=== PATIENT | female | born 1940 | race Caucasian/White ===

== ENCOUNTER → 2017-09-08 | Outpatient (CLI) | payer OTHER ==
[~2017-09-08] VITALS: Ht 154.9 cm; Wt 80.7 kg
[~2017-09-08] MED LIST: ACETAMINOPHEN325 M1 PO; ALLOPURINOL 30300 M1 PO; AMITRIPTYLINE H25 M4 PO; ASPIRIN81 M2 PO; CALCIUM 600 +1 EA15 PO; CALCIUM 600 +1 EAC5 PO; CARDIZEM CD 18180 M3 PO; CLARITIN10 MG PO; DISALCID750 MG PO; FENOFIBRATE145 M1 PO; FIBER CHOICE C1.5 GM PO; FISH OIL 1,2001 EAC4 PO; FLONASE 0.05%50 MCG NASAL; FOLIC ACID 1 MG1 MG PO; GLUCOPHAGE500 MG PO; HYDROCODON-ACE1 EAC5 PO; HYDROXYZINE HCL25 M1 PO; METHOTREXA1 GM/40 M1 PO; MICARDIS40 MG PO; MYRBETRIQ25 MG PO; NEXIUM40 MG PO; NORCO 10-325 T1 EACH PO; NYSTATIN 1100000 U/M PO; PREMARIN VAGI42.5 G1 TOP; PRESERVISION T1 EACH PO; PROLIA60 MG/1 ML SQ; REMICADE 1100 MG/VIA IV; RESTASIS1 EACH OPHTHALMIC; ROBAXIN 750 MG750 M1 PO; ROPINIROLE HCL0.5 MG PO; SALSALATE 750750 MG PO; SYNTHROID75 MCG PO; VITAMIN D-32000 UNIT PO; VOLTAREN GEL 1100 G1 TOP; ZOCOR40 MG PO
--- NOTE | ~2017-09-08 | HPC ---
[facility] [address] [place] [address] PAIN MANAGEMENT CONSULTATION Name: LAURA JOLLY Room #: REG [facility] Matias.#: [id number] Admission: 09/08/17 Attend Phys: Honorio Davis, DO Discharge: Date of : 42 Report #: [id number] THIS REPORT FOR: //name// CC: Sherita Davis The patient is a delightful 76-year-old female, seen now a little greater than 2 years ago for symptomatic lumbar radiculopathy status post decompressive laminectomy, component of SI mediated pain and neuropathic pain. The patient was given a caudal epidural injection with overall improvement of lumbar radicular symptoms, and lost to follow up. She returns to the pain clinic today noting that pain has begun to recur past year or more. Pain is in the hips and anterior thighs. She has developed pain to the point she is using a cane in her right hand for the past several months. She has also noted some episodic saddle anesthesia and episodic bowel and bladder incontinence. 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 for pain from Dr. Sherita Mckeon. She notes pain has become problematic to the point that she sought further care. She was convinced pain was coming from the hips, x-rays apparently showed rather unremarkable pathology here, she did get a new series of x-rays and MRI of the lumbar spine. It does show progressive spinal stenosis with specifically L2-L3 noting canal narrowed to 0.6 cm AP with grade 1 anterolisthesis of L2 on 3. She has fusion L4-L5 through S1 with posterior decompression and pedicle screws L4, L5, and S1. REVIEW OF SYSTEMS: A complete review of systems was gone over with the patient, again in the intervening 2 years, no significant medical changes have occurred, ongoing rheumatoid arthritis. History of gout for which she takes allopurinol, Requip for restless legs syndrome. Dyslipidemia for which she takes simvastatin. Does have some ongoing bladder spasms, she continues to take mirabegron. Osteopenia for which she takes Prolia. Does take nystatin for her dyslipidemia as well. Salsalate p.o. along with Voltaren gel topically. Remicade infusions for her rheumatoid arthritis, Micardis, allopurinol, and levothyroxine. PHYSICAL EXAMINATION: Reveals a 155 cm, 80 kg female with a BMI of 33.7 kg/m2. Blood pressure is 134/76, pulse 67, and respirations are 18. Alert and oriented to person, place and time, judged to be a reasonable historian. Pupils are reactive to light and accommodation. Extraocular muscles are intact. Thyroid is modestly enlarged. Upper extremity strength is preserved. Rises from chair using armrest. She is using a cane in her right hand. She has a modestly antalgic gait. Lumbar flexion is limited to about 50 degrees. Lower extremity strength shows diminished hip flexion strength bilaterally about 3/5, lower extremity extension is better to about 4/5, plantarflexion and dorsiflexion is symmetric. Straight leg raise is negative. Patellar reflexes are diminished bilaterally. Achilles reflexes are preserved. Passive rotation of the hips is completely unremarkable. Josue's test is nominal. [address] [address] PAIN MANAGEMENT CONSULTATION Name: LAURA JOLLY Room #: REG LELO Azevedo#: [id number] Admission: 09/08/17 Attend Phys: Honorio Davis DO Discharge: Date of : 42 Report #: [id number] DIAGNOSTIC STUDIES: As alluded to above, does show significant stenosis at L2-L3. ASSESSMENT: Symptomatic lumbar radiculopathy status post decompressive laminectomy, axial back pain, neuropathic pain requiring high risk complex medication management, and sacroiliac joint dysfunction by history. RECOMMENDATION: 1. 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 Mckeon, these are appropriate. 2. Epidural injection under fluoroscopy today, midline L3-L4. She has very tight stenosis at L2-L3. If this does not afford adequate relief, we can proceed with bilateral transforaminal epidural injections at L2-L3. 3. If bowel and/or bladder incontinence issues continue, f/u with GP for further evaluation. It is not characterisitic for B/B incontinence changes secondary to severe spinal stenosis to be intermitent with completely normal function between bouts. Thank you for allowing me to participate in the patient's care. I will keep you abreast of her progress. PROCEDURE: Lumbar epidural injection under fluoroscopy. PROCEDURE NOTE: After both written and informed consent to include risk of spinal cord damage, increased pain, weakness and dural puncture, the patient was taken to the fluoroscopy suite, placed in the prone position. After sterile prep and drape, a skin wheal with lidocaine was raised. A 22-gauge epidural Tuohy needle was inserted in the midline at L3-L4 with good loss to resistance. Negative aspiration for cerebrospinal fluid or blood was noted. Then 1 mL of Omnipaque under biplanar fluoroscopy showed good spread within the epidural space. This was followed with 80 mg of triamcinolone plus 1 mL of 1.5% preservative-free Xylocaine, 0.5 mL Xylocaine was then injected to flush the needle; it was removed. The patient was monitored for an appropriate period of time and discharged in good and stable condition. <ELECTRONICALLY SIGNED> By: Honorio Davis DO 09/11/17 [id number] [id number] Honorio Davis DO /nt
[2017-09-08 11:28] VITALS: BP 134/76
== END ==
LOC: PAIN 07:05
DX: M54.16 Radiculopathy, lumbar region (principal); M53.3 Sacrococcygeal disorders, not elsewhere classified; Z88.8 Allergy status to other drugs, medicaments and biological substances; Z91.09 Other allergy status, other than to drugs and biological substances; Z79.891 Long term (current) use of opiate analgesic

== ENCOUNTER → 2018-04-12 | Outpatient (CLI) | payer OTHER ==
[~2018-04-12] VITALS: Ht 154.9 cm; Wt 82.9 kg
--- NOTE | ~2018-04-12 | HPC ---
[facility] [place] [address] [place] [address] PAIN MANAGEMENT CONSULTATION Name: LAURA JOLLY Room #: REG [facility].#: [id number] Admission: 04/12/18 Attend Phys: Honorio Davis DO Discharge: Date of : 42 Report #: [id number] THIS REPORT FOR: //name// CC: Sherita Davis The patient is a 77-year-old female who has been treated for symptomatic lumbar radiculopathy status post decompressive laminectomy and fusion L4 through S1. She has done well with occasional epidural injections, last injection was back in August. She prior had an injection about 5 months prior. She initially had a caudal injection with some efficacy. Last injection at L3-L4 on 09/08/2017 afforded greater than 60% relief for many months. Pain has only begun to recur in the low back, anterior thighs, exacerbated with standing, walking and bending. PHYSICAL EXAMINATION: Shows pleasant 77-year-old female. Vital signs as noted in the EMR. Rises from chair using armrest, does have an antalgic gait. Little ataxia. We talked about using a cane for balance. Lower extremity strength is symmetric, modestly diminished. Hip flexion exacerbates pain. ASSESSMENT: Symptomatic lumbar radiculopathy, status post decompressive laminectomy with fusion L4 through S1 with a classic L3 radicular symptoms. RECOMMENDATION: Epidural injection under fluoroscopy today. Follow up simply as needed. PROCEDURE: Lumbar epidural injection with fluoroscopy. PROCEDURE NOTE: After both written and informed consent to include risk of spinal cord damage, increased pain, weakness and dural puncture, the patient was taken to the fluoroscopy suite, placed in the prone position. After sterile prep and drape, a skin wheal with lidocaine was raised. A 22-gauge epidural Tuohy needle was inserted in the midline at L3-4 with good loss to resistance. Negative aspiration for cerebrospinal fluid or blood was noted. Then 1 mL of Omnipaque under biplanar fluoroscopy showed good spread within the epidural space. This was followed with 80 mg of triamcinolone plus 1 mL of 1.5% preservative-free Xylocaine, 0.5 mL Xylocaine was then injected to flush the needle; it was removed. The patient was monitored for an appropriate period of time and discharged in good and stable condition. <ELECTRONICALLY SIGNED> By: Honorio Davis DO 04/13/18 [id number] Honorio Davis DO /nt
[2018-04-12 09:10] VITALS: BP 137/65
== END | disposition home or self-care (01) ==
LOC: PAIN 09-21 07:52
DX: M54.16 Radiculopathy, lumbar region (principal); G89.29 Other chronic pain; Z98.890 Other specified postprocedural states; Z79.899 Other long term (current) drug therapy; Z88.8 Allergy status to other drugs, medicaments and biological substances; Z79.891 Long term (current) use of opiate analgesic

== ENCOUNTER → 2019-03-27 | Outpatient (CLI) | payer OTHER ==
[~2019-03-27] VITALS: Ht 154.9 cm; Wt 81.1 kg
[~2019-03-27] MED LIST changes: +CIMZIA400 MG SUBQ; +MAGNESIUM OXID250 MG PO; +METAMUCIL660 GM PO; +OCUVITE TABLET1 EAC1 PO; +OMEGA-31000 M1 PO; +PRENATAL FORMU1 EAC4 PO
--- NOTE | ~2019-03-27 | P ---
[facility] [place] [address] PROCEDURE REPORT Name: LAURA JOLLY Room #: REG [facility].#: [id number] Admission: 03/27/19 ������������������ Attend Phys: Carlos Davis DO Discharge: ������������������ Date of : 42 Report #: [id number] THIS REPORT FOR: //name// CC: Carlos Mckeon MD DATE OF SERVICE: 03/27/2019 DESCRIPTION OF PROCEDURE: L3-L4 interlaminar epidural steroid injection under fluoroscopic guidance. After obtaining written consent, the patient was taken back to fluoroscopy suite, placed in prone position with pillow under abdomen to decrease lumbar lordosis. Skin overlying lumbosacral area then prepped and draped in aseptic fashion. The lumbar intervertebral spaces identified by AP fluoroscopy. Skin and subcutaneous tissue overlying target site of injection anesthetized with 3 mL of 1% lidocaine. A 20-gauge 3-1/2-inch Tuohy needle advanced under fluoroscopic guidance towards the epidural space using a parasagittal approach. Epidural space identified using loss of resistance to air technique. After negative aspiration for heme or cerebrospinal fluid, 1 mL of Omnipaque injected. Lumbar epidurogram confirmed using both AP and lateral fluoroscopy. After negative aspiration for heme or cerebrospinal fluid, 5 mL of a solution containing 2 mL 40 mg per mL, 80 mg total triamcinolone and 3 mL of lidocaine 1% injected slowly. Needle then retracted approximately half way, flushed with 1 mL of 1% lidocaine and then removed. Sterile bandage placed over injection site. No new motor deficits present in the lower extremities following procedure. The patient tolerated procedure well, carefully escorted to recovery room in stable condition. No apparent complication. After meeting discharge criteria, the patient discharged home. ��������������������������������������������� ���������������������������������������� By: ��������������������������������������������� 0835 [id number] Carlos Davis DO /nt
--- NOTE | ~2019-03-27 | HPC ---
[facility] [place] [address] PAIN MANAGEMENT CONSULTATION Name: LAURA JOLLY Room #: REG [facility].#: [id number] Admission: 03/27/19 ������������������ Attend Phys: Carlos Davis DO Discharge: ������������������ Date of : 42 Report #: [id number] THIS REPORT FOR: //name// CC: Carlos Mckeon MD DATE OF SERVICE: 03/27/2019 CHIEF COMPLAINT: Back pain. HISTORY OF PRESENT ILLNESS: As you know, the patient is a 78-year-old female who has undergone extensive lumbar spine surgery with fusion from L4 through S1 with instrumentation. She sought evaluation with my partner, Dr. Honorio Davis nearly 2 years ago where she underwent an epidural injection with some improvement in symptoms. She returns today in followup visit per the request of Dr. Mckeon to undergo next in the series of lumbar epidural injections in hopes of improving pain. The patient is placing her pain today at around 5/10. She denies any specific injury or trauma since our surgeries that may have led to symptom recurrence. She returns to undergo a lumbar epidural injection today. ALLERGIES: ADHESIVE TAPES, PLAQUENIL, REMICADE. CURRENT MEDICATIONS: Allopurinol, Synthroid, fenofibrate, simvastatin, Micardis, fluticasone spray, cyclosporine, multivitamin, cholecalciferol, calcium carbonate, hydroxyzine, ropinirole, diclofenac, hydrocodone, estrogen conjugates, nystatin, Myrbetriq, Prolia, loratadine, Cimzia, magnesium oxide, omega-3 fish oil, vitamin, psyllium husks. SOCIAL HISTORY: The patient denies tobacco, alcohol, IV or illicit drug use. She is retired. She is unaccompanied today. IMAGING: No new imaging available. PQRS: The patient has known arthritic changes of the lumbar spine, status post fusion, bilateral hip osteoarthritis and bilateral knees. She does have a history of rheumatoid arthritis and being treated for such. She is placing pain intensity of 5/10. She is a fall risk, but has not had a fall in the last three months. She is utilizing ambulatory devices. She is not on blood thinners, but is treated for hypertension. She has been on long-term opioid medication. She is a low risk for opioid addiction. She is placing pain impact score at 35/70, moderate interference of daily activities secondary to pain. PHYSICAL EXAMINATION: VITAL SIGNS: Blood pressure 170/70, pulse 65, respiratory rate 18 and unlabored. The patient is 99% on room air. Height 5 feet 1 inch tall, weight [address] [address] PAIN MANAGEMENT CONSULTATION Name: LAURA JOLLY Room #: REG [facility].#: [id number] Admission: 03/27/19 ������������������ Attend Phys: Carlos Davis DO Discharge: ������������������ Date of : 42 Report #: [id number] 178.8 pounds, BMI calculated 33.8. GENERAL: Well-developed, well-nourished, well-hydrated 78-year-old female. She appears stated age, pain is rated around 5/10. HEENT: Normocephalic, atraumatic. Pupils equal, round, reactive to light. EXTREMITIES: Show no clubbing, no cyanosis, and no edema. MUSCULOSKELETAL: Lower extremity strength is equal and symmetrical, but diminished with hip flexion, knee extension bilaterally. Muscle bulk and tone appears symmetrical in comparing left lower extremity over right. Gait is antalgic. There are well-healed surgical scars from lumbar surgery. Straight leg raising is negative in the supine position and an equivocal in the supine position. ASSESSMENT: 1. Symptomatic lumbar radiculopathy. 2. Lumbosacral spondylosis with radiculopathy. 3. Failed lumbar spine surgery. 4. Chronic intractable pain. PLAN: 1. The patient returns today in followup visit per the request of her primary care physician to undergo next in the series of lumbar epidural injections. The patient apparently did very well with previous epidural injection, this was performed 09/08/2017. She returns today to undergo next in the series in hopes of improving residual pain. She has been advised risks and benefits of this procedure. These risks include but are not necessarily limited to bleeding, bruising, infection, worsening of pain, no relief of pain, also risk of temporary or permanent muscle weakness, temporary or permanent nerve damage, possible paralysis, post-dural puncture headache and . The patient states she understood and wished to proceed. 2. No medication changes made at today's visit. The patient will continue current medical therapy as previously prescribed. 3. We will see the patient back in followup visit on an as needed basis for possible next in the series of lumbar epidural injections. ��������������������������������������������� ���������������������������������������� By: ��������������������������������������������� 0835 [id number] Carlos Davis DO /nt
[2019-03-27 09:44] VITALS: BP 170/70
--- NOTE | 2019-03-27 10:10 | NUR ---
Pain Clinic Assessment: 1. History of Osteoarthritis: Not Applicable History of Rheumatoid Arthritis: YES 2. Height: 5 ft. 1 in. 154.9 cm. Weight: 178.8 lb. oz. 81.103 kg. Patient's BMI: 33.8 3. Vital Signs: BP: 170/70 Pulse: 65 Resp: 18 Temp: 02 Sat: 99 ECG Mon: 4. Pain Intensity: 5 THIS AM 5. Fall Risk: Dizziness: Y Needs help standing or walking: Y Fallen in the last 3 months: N Fall risk comments: 6. Patient on Blood Thinner: None 7. History of Hypertension: Y 8. Opioid Therapy greater than 6 weeks: Y Opiate Contract Signed: 9. Risk Assessment Tool Provided: 0 LOW 10. Functional Assessment Tool: 11. Recreational Drug Use: Never Drug Type: Tobacco Use: Never Smoker Tobacco Type: Amount or Packs/day: How Many Years: Alcohol Use: Past use Frequency: Quant:
== END | disposition home or self-care (01) ==
LOC: PAIN 08:36
DX: M47.27 Other spondylosis with radiculopathy, lumbosacral region (principal); M96.1 Postlaminectomy syndrome, not elsewhere classified; G89.29 Other chronic pain; I10 Essential (primary) hypertension; M06.9 Rheumatoid arthritis, unspecified; Z79.891 Long term (current) use of opiate analgesic; M19.90 Unspecified osteoarthritis, unspecified site; Z88.8 Allergy status to other drugs, medicaments and biological substances; Z79.899 Other long term (current) drug therapy; Z98.890 Other specified postprocedural states

== ENCOUNTER → 2019-07-16 | Outpatient (CLI) | payer OTHER ==
[~2019-07-16] VITALS: Ht 154.9 cm; Wt 79.4 kg
[~2019-07-16] MED LIST changes: +CEVIMELINE HCL30 MG PO
[2019-07-16 09:26] VITALS: BP 158/66
--- NOTE | 2019-07-16 09:30 | NUR ---
Pain Clinic Assessment: 1. History of Osteoarthritis: Not Applicable History of Rheumatoid Arthritis: YES 2. Height: 5 ft. 1 in. 154.9 cm. Weight: 175.0 lb. oz. 79.380 kg. Patient's BMI: 33.1 3. Vital Signs: BP: 158/66 Pulse: 64 Resp: 14 Temp: 02 Sat: 98 ECG Mon: 4. Pain Intensity: 4-NOW, 6-AM AND EVENING 5. Fall Risk: Dizziness: N Needs help standing or walking: N Fallen in the last 3 months: N Fall risk comments: 6. Patient on Blood Thinner: None 7. History of Hypertension: Y 8. Opioid Therapy greater than 6 weeks: Y Opiate Contract Signed: 9. Risk Assessment Tool Provided: 0 LOW 10. Functional Assessment Tool: 35/70 11. Recreational Drug Use: Never Drug Type: Tobacco Use: Never Smoker Tobacco Type: Amount or Packs/day: How Many Years: Alcohol Use: Past use Frequency: Quant:
--- NOTE | 2019-07-17 07:46 | HPC ---
[facility] [place] [address] PAIN MANAGEMENT CONSULTATION Name: LAURA JOLLY Room #: REG [facility].#: [id number] Admission: 07/16/19 Attend Phys: Carlos Davis DO Discharge: Date of : 42 Report #: [id number] THIS REPORT FOR: //name// CC: NICKI Mckeon DATE OF SERVICE: 07/16/2019 REFERRING PHYSICIAN: Nicki Mckeon MD CHIEF COMPLAINT: Back pain. HISTORY OF PRESENT ILLNESS: As you know, the patient is a 78-year-old female who has had extensive lumbar spine surgery with fusion from L4 through S1 with instrumentation. She was initially seen by my partner, Dr. Honorio Davis in consultation 07/03/2015, diagnosed with symptomatic lumbar radiculopathy status post decompressive laminectomy. Since that time, the patient has had fusion from L4 through S1, but unfortunately is now experiencing symptoms from the L2-L3 level. She has noted progressively worsening spinal stenosis at the L2-L3 level, now classified as marked disk space narrowing with large broad central disk protrusion along with a grade 1 retrolisthesis leading to severe thecal sac compression with measurement no greater than 6 mm. She underwent a lumbar epidural injection under fluoroscopic guidance to address the symptoms at our last visit reporting improvement in symptoms of 90%, lasting for almost a month. She returns today in followup visit to undergo next in the series of epidural injections. The patient does have plans to see Dr. Jones in the very near future in regards to surgical decompression of the L2-L3 level, the level just above most recent fusion. She returns today requesting next in the series of injections and to discuss options for treatment. ALLERGIES: ADHESIVE TAPE, PLAQUENIL, REMICADE. CURRENT MEDICATIONS: See extensive list in chart. SOCIAL HISTORY: The patient denies tobacco, alcohol, IV or illicit drug use. She is accompanied by her present in room today. IMAGING: No new imaging available. PQRS: The patient has known arthritic changes of the lumbar spine, bilateral hip osteoarthritis and bilateral knee osteoarthritis. She does have a history of rheumatoid arthritis, being treated medically. She is placing pain today at around 4/10 up to 6/10 in the evening hours. She is not a fall risk, has not had a fall in last 3 months. She is not on blood thinners, but is treated for hypertension. She is on chronic opioids, has a low opioid addiction potential. [address] [address] PAIN MANAGEMENT CONSULTATION Name: LAURA JOLLY Room #: REG CLI [facility].#: [id number] Admission: 07/16/19 Attend Phys: Carlos Davis DO Discharge: Date of : 42 Report #: [id number] pain impact score 35/70, indicating moderate interference of daily activities secondary to pain. PHYSICAL EXAMINATION: VITAL SIGNS: Blood pressure 158/66, pulse 64, respiratory rate 14 and unlabored. The patient is 98% on room air. Height 5 feet 1 inch tall, weight 175 pounds, BMI calculated 33.1. GENERAL: Well-developed, well-nourished, well-hydrated, exogenously obese 78-year-old female, appearing stated age, pain is rated anywhere from 4-6/10. HEENT: Normocephalic, atraumatic. Pupils equal, round, reactive to light. EXTREMITIES: Show no clubbing, no cyanosis, and no edema. MUSCULOSKELETAL: Lower extremity strength is symmetrical, but diminished with hip flexion, knee extension bilaterally due to pain generation. Muscle bulk and tone appears symmetrical in comparing left lower extremity to right. Gait is antalgic. Well-healed surgical scars of the lumbar spine bilaterally. Straight leg raising negative. Supine straight leg raising equivocal. Ankle clonus negative. Babinski is negative. ASSESSMENT: 1. Symptomatic lumbar radiculopathy. 2. Lumbosacral spondylosis with radiculopathy. 3. Central canal stenosis of lumbar spine. 4. Failed lumbar spine surgery. 5. Chronic intractable pain. PLAN: 1. The patient returns today in followup visit having noted 90% improvement lasting for nearly 1 month with previous epidural injection. Unfortunately, the patient's symptoms have begun to return without inciting injury or trauma. She is requesting we will perform next in a series of lumbar epidural injections to hopefully improve overall pain. She also wishes to discuss other treatment options today. 2. The patient was advised risks and benefits of a lumbar epidural injection. These risks include but are not necessarily limited to bleeding, bruising, infection, worsening pain, no relief of pain, also risk of temporary or permanent muscle weakness, temporary or permanent nerve damage, possible paralysis, post-dural puncture headache and . The patient states understood and wished to proceed. 3. The patient and I did discuss other treatment options available for her ongoing pain. These would include physical therapy, stretching exercise, core strengthening to help alleviate some of the symptoms the patient is experiencing and provide better baseline core strength in the lumbar region. We discussed medication management, understanding that all medications eventually failed to control symptoms. This would be only a temporizing treatment option and given the current political condition in regards to opioid medications, may not be available for any length of time. We discussed spinal cord stimulator as an [facility] [address] [place] [address] PAIN MANAGEMENT CONSULTATION Name: LAURA JOLLY Room #: REG [facility]#: [id number] Admission: 07/16/19 Attend Phys: Carlos Davis DO Discharge: Date of : 42 Report #: [id number] option, which could provide improvement for a period of time, but the stenosis at the L2-L3 level will continue to progress and ultimately the spinal cord stimulator will be ineffective at treating symptoms. Finally, we discussed the surgical option extending the fusion from the L4 level to the L2 level, decompressing the new stenotic findings on MRI. The patient will consider options. She is going to discuss this with Dr. Jones at their followup visit. 4. No medication changes made at today's visit. The patient will continue current medical therapy as previously prescribed. 5. I have provided the prescription for the patient for a roller walker. This is due to the severe ambulatory issue secondary to the progressively worsening spinal stenosis and weakness. A roller walker was provided to the patient in prescription form to fill at her earliest convenience. 6. We will see the patient back in followup visit on an as needed basis for possible third in the series of epidural injections. PROCEDURE NOTE DESCRIPTION OF PROCEDURE: L3-L4 interlaminar epidural steroid injection under fluoroscopic guidance. After obtaining written consent, the patient was taken back to fluoroscopy suite, placed in prone position with pillow under abdomen to decrease the lumbar lordosis. Skin overlying lumbosacral area then prepped and draped in aseptic fashion. The L3-L4 level was identified by AP fluoroscopy. Skin and subcutaneous tissue overlying target site of injection anesthetized with 3 mL of 1% lidocaine. A 20-gauge 3-1/2 inch Tuohy needle advanced under fluoroscopic guidance towards the epidural space using a parasagittal approach. Epidural space identified using loss of resistance to air technique. After negative aspiration for heme or cerebrospinal fluid, 1 mL of Omnipaque injected. A lumbar epidurogram was confirmed using both AP and lateral fluoroscopy. After negative aspiration for heme or cerebrospinal fluid, 5 mL of a solution containing 2 mL 40 mg per mL, 80 mg total triamcinolone and 3 mL of lidocaine 1% injected slowly. Needle then retracted [place], flushed with 1 mL of 1% lidocaine and then removed. Sterile bandage placed over injection site. No new motor deficits present in lower extremity following procedure. The patient tolerated the procedure well, carefully escorted to recovery room in stable condition. No apparent complications. After meeting discharge criteria, the patient discharged home. <ELECTRONICALLY SIGNED> By: Carlso Davis DO 07/17/19 0746 [id number] Carlos Davis DO /nt
== END | disposition home or self-care (01) ==
LOC: PAIN 06:47
DX: M47.27 Other spondylosis with radiculopathy, lumbosacral region (principal); M48.061 Spinal stenosis, lumbar region without neurogenic claudication; M96.1 Postlaminectomy syndrome, not elsewhere classified; G89.29 Other chronic pain; I10 Essential (primary) hypertension; M19.90 Unspecified osteoarthritis, unspecified site; M06.9 Rheumatoid arthritis, unspecified; Z79.891 Long term (current) use of opiate analgesic; Z88.8 Allergy status to other drugs, medicaments and biological substances; Z98.890 Other specified postprocedural states; Z79.899 Other long term (current) drug therapy

== ENCOUNTER → 2019-11-13 | Outpatient (CLI) | payer OTHER ==
[~2019-11-13] VITALS: Ht 154.9 cm; Wt 79.7 kg
--- NOTE | ~2019-11-13 | HPC ---
[facility] [place] [address] PAIN MANAGEMENT CONSULTATION Name: LAURA JOLLY Room #: REG [facility].#: [id number] Admission: 11/13/19 Attend Phys: Carlos Davis DO Discharge: Date of : 42 Report #: [id number] THIS REPORT FOR: //name// CC: Carlos Mckeon DATE OF SERVICE: 11/13/2019 CHIEF COMPLAINT: Low back pain, bilateral lower extremity pain, left greater than right. HISTORY OF PRESENT ILLNESS: As you know, the patient is a 79-year-old female who has undergone extensive surgical procedures of the lumbar spine with fusion of 3 levels of the lumbar area. Unfortunately, her symptoms continued to recur as a radiculopathy. She was referred to our clinic to trial injections before looking toward surgical options. She has returned today stating that the previous lumbar epidural injection gave at our visit of 07/16/2019 provided improvement in symptoms of nearly 100%, lasting for 3 months. She returns today in follow up visit to undergo next in the series of lumbar epidural injections in hopes of building on that success. Unfortunately, her symptoms have begun to return. She is now placing pain score at 7/10 in the a.m., reducing to about 4/10 with ambulation. The patient denies new injury or trauma that may have led to symptom reoccurrence. ALLERGIES: ADHESIVE TAPE, PLAQUENIL, REMICADE. CURRENT MEDICATIONS: See chart. SOCIAL HISTORY: The patient denies tobacco, alcohol, IV or illicit drug use. She is accompanied by her , again present in room for this evaluation. IMAGING: No new imaging available. PQRS: The patient has arthritic changes noted of the lumbar spine, bilateral shoulders, bilateral elbows, bilateral hips and knees. She does have a diagnosis of rheumatoid arthritis. She is not a fall risk, has not had a fall in last 3 months. She is not on blood thinners, but is treated for hypertension. She is on chronic opioids and has a low opiate addiction potential. Pain impact score 35/70, moderate interference of daily activities secondary to pain. PHYSICAL EXAMINATION: VITAL SIGNS: Blood pressure 154/76, pulse 74, respiratory rate 18 and unlabored. The patient is 97% on room air. Height 5 feet 1 inch tall, weight 175.6 pounds and BMI calculated 33.2[place] [address] PAIN MANAGEMENT CONSULTATION Name: LAURA JOLLY [id number] Admission: 11/13/19 Attend Phys: Carlos Davis DO Discharge: Date of : 42 Report #: [id number] GENERAL: Well-developed, well-nourished, well-hydrated exogenously obese 79-year-old female appearing stated age, pain is rated today at around 7/10 in the morning, 4/10 at present. HEENT: Normocephalic, atraumatic. Pupils equal, round, reactive to light. Speech remains fluent. EXTREMITIES: Show no clubbing, no cyanosis, and no edema. MUSCULOSKELETAL: Lower extremity muscle bulk and tone is symmetrical again today when comparing lower extremities. Gait is antalgic favoring what appears to be the left lower extremity. Well-healed surgical scars of the lumbar spine. Lumbar provocation testing is met with reduction in mobility as well as pain with all maneuvers. Seated straight leg raising negative. Supine straight leg raising equivocal. ASSESSMENT: 1. Symptomatic lumbar radiculopathy. 2. Lumbosacral spondylosis with radiculopathy. 3. Progressively worsening central canal stenosis of lumbar spine. 4. Failed lumbar spine surgery. 5. Chronic intractable pain. PLAN: 1. The patient returns today in followup visit having noted good benefit with the previous epidural injection provided on 07/16/2019. Unfortunately, her symptoms have begun to return. She returns today to undergo the next in the series of epidural injections in hopes of building on success of previous intervention. The patient denies new injury, new trauma or any changes in medical history since our visit of June. She has been advised the risks and benefits of the procedure, states understood and wished to proceed. 2. No medication changes made at today's visit. The patient will continue current medical therapy as prior prescribed. 3. We will see the patient back in followup visit on an as needed basis for possible next in the series of epidural injections. PROCEDURE NOTE DESCRIPTION OF PROCEDURE: L3-L4 interlaminar epidural steroid injection under fluoroscopic guidance. After obtaining written consent, the patient was taken back to fluoroscopy suite, placed in prone position with pillow under abdomen to decrease lumbar lordosis. Skin overlying lumbosacral area prepped and draped in aseptic fashion. The L3-L4 interspace was identified by AP fluoroscopy. Skin and subcutaneous tissue overlying target site of injection anesthetized with 3 mL of 1% lidocaine. A 20-gauge 3-1/2 inch Tuohy needle advanced under fluoroscopic guidance towards [address] [address] PAIN MANAGEMENT CONSULTATION Name: LAURA JOLLY [id number] Admission: 11/13/19 Attend Phys: Carlos Davis DO Discharge: Date of : 42 Report #: [id number] the epidural space using a paramedian approach. Epidural space identified using loss of resistance to air technique. After negative aspiration for heme or cerebrospinal fluid, 1 mL of Omnipaque injected. A lumbar epidurogram was confirmed using both AP and lateral fluoroscopy. After negative aspiration for heme or cerebrospinal fluid, 5 mL of a solution containing 2 mL 40 mg per mL, 80 mg total triamcinolone along with 3 mL lidocaine 1% injected slowly. Needle retracted alf, flushed with 1 mL of 1% lidocaine and then removed. Sterile bandage placed over injection site. No new motor deficits present in the lower extremities following procedure. The patient tolerated procedure well, carefully escorted to recovery room in stable condition. No apparent complications. After meeting discharge criteria, the patient discharged home. By: [id number] Carlos Davis DO /nt
[2019-11-13 13:53] VITALS: BP 154/76
--- NOTE | 2019-11-13 14:26 | NUR ---
Pain Clinic Assessment: 1. History of Osteoarthritis: BACK Left Upper Extremity Right Upper Extremity Right Lower Extremity Left Lower Extremity History of Rheumatoid Arthritis: YES 2. Height: 5 ft. 1 in. 154.9 cm. Weight: 175.6 lb. oz. 79.652 kg. Patient's BMI: 33.2 3. Vital Signs: BP: 154/76 Pulse: 74 Resp: 18 Temp: 02 Sat: 97 ECG Mon: 4. Pain Intensity: 7 IN AM. 4 WITH MOVEMENT 5. Fall Risk: Dizziness: Y Needs help standing or walking: N Fallen in the last 3 months: N Fall risk comments: 6. Patient on Blood Thinner: None 7. History of Hypertension: Y 8. Opioid Therapy greater than 6 weeks: Y Opiate Contract Signed: 9. Risk Assessment Tool Provided: 0 LOW 10. Functional Assessment Tool: 35 11. Recreational Drug Use: Never Drug Type: Tobacco Use: Never Smoker Tobacco Type: Amount or Packs/day: How Many Years: Alcohol Use: Past use Frequency: Quant:
== END | disposition home or self-care (01) ==
LOC: PAIN 07:01
DX: M47.27 Other spondylosis with radiculopathy, lumbosacral region (principal); M96.1 Postlaminectomy syndrome, not elsewhere classified; M48.061 Spinal stenosis, lumbar region without neurogenic claudication; G89.29 Other chronic pain; I10 Essential (primary) hypertension; M19.90 Unspecified osteoarthritis, unspecified site; M06.9 Rheumatoid arthritis, unspecified; E66.09 Other obesity due to excess calories; Z98.890 Other specified postprocedural states; Z79.899 Other long term (current) drug therapy; Z79.891 Long term (current) use of opiate analgesic; Z88.8 Allergy status to other drugs, medicaments and biological substances; Z68.33 Body mass index [BMI] 33.0-33.9, adult

== ENCOUNTER → 2020-05-19 | Outpatient (CLI) | payer OTHER ==
[~2020-05-19] VITALS: Ht 154.9 cm; Wt 78.5 kg
[~2020-05-19] MED LIST changes: +NEURONTIN300 MG PO
[2020-05-19 12:43] VITALS: BP 137/59
--- NOTE | 2020-05-19 13:09 | NUR ---
Pain Clinic Assessment: 1. History of Osteoarthritis: BACK Left Upper Extremity Right Upper Extremity Right Lower Extremity Left Lower Extremity History of Rheumatoid Arthritis: YES 2. Height: 5 ft. 1 in. 154.9 cm. Weight: 173.0 lb. oz. 78.472 kg. Patient's BMI: 32.7 3. Vital Signs: BP: 137/59 Pulse: 72 Resp: 20 Temp: 02 Sat: 98 ECG Mon: 4. Pain Intensity: 5-6 5. Fall Risk: Dizziness: N Needs help standing or walking: N Fallen in the last 3 months: N Fall risk comments: 6. Patient on Blood Thinner: None 7. History of Hypertension: Y 8. Opioid Therapy greater than 6 weeks: Y Opiate Contract Signed: 9. Risk Assessment Tool Provided: 0 LOW 10. Functional Assessment Tool: 11. Recreational Drug Use: Never Drug Type: Tobacco Use: Never Smoker Tobacco Type: Amount or Packs/day: How Many Years: Alcohol Use: Past use Frequency: Quant:
--- NOTE | 2020-05-20 11:38 | HPC ---
[facility] [place] [address] PAIN MANAGEMENT CONSULTATION Name: LAURA JOLLY Room #: REG [facility].#: [id number] Admission: 05/19/20 Attend Phys: Carlos Davis DO Discharge: Date of : 42 Report #: [id number] THIS REPORT FOR: cc: Sherita Mckeon MD, Jennifer L MD Johnson, James E. DO ~ DATE OF SERVICE: 05/19/2020 CHIEF COMPLAINT: Low back pain, bilateral lower extremity pain with paresthesias. HISTORY OF PRESENT ILLNESS: As you know, the patient is a 79-year-old female who has undergone a fusion at L4 through S1 for lumbar radiculopathy. Unfortunately, her symptoms continue to be present. She was sent to our clinic to trial injection therapies. She underwent L3-L4 intra-articular epidural injection with good benefit at our initial visit of 03/27/2019. She has undergone periodic injections over 2019 of 4 different shots that provided excellent benefit. She has been lost to followup visit from 10/2019 to today where she has had a slow and progressive return of symptoms. She reports the previous epidural injection gave 80% improvement in overall pain until just recently. She returns today in followup visit, denying new injury or trauma that may have led to symptom reoccurrence. ALLERGIES: ADHESIVE TAPE, PLAQUENIL, REMICADE. CURRENT MEDICATIONS: See extensive list in chart. SOCIAL HISTORY: The patient denies tobacco, alcohol, IV or illicit drug use. She is unaccompanied today. IMAGING: No new imaging available. PQRS: The patient has known arthritic changes of the lumbar spine, bilateral shoulders, bilateral elbows, bilateral hands. She has osteoarthritic changes of bilateral hips and knees. She does have a diagnosis of rheumatoid arthritis and does receive treatment for such. She is placing current pain score 5-6/10. She is not a fall risk, has not had a fall in last 3 months. She is not in blood thinners, but she is treated for hypertension. She is on chronic opioids and has a low opiate addiction potential. Pain impact score 35/70, moderate interference of daily activities secondary to pain. PHYSICAL EXAMINATION: VITAL SIGNS: Blood pressure 137/59, pulse 72, respiratory rate 20 and unlabored. The patient is 98% on room air. Height 5 feet 1 inch tall, weight 173 pounds, BMI calculated 32.7. [place] [address] PAIN MANAGEMENT CONSULTATION Name: LAURA JOLLY Room #: REG CLI [facility]#: [id number] Admission: 05/19/20 Attend Phys: Carlos Davis DO Discharge: Date of : 42 Report #: [id number] GENERAL: Well-developed, well-nourished, well-hydrated exogenously obese 79-year-old female appearing stated age, pain is rated today at 5-6/10. HEENT: Normocephalic, atraumatic. Pupils equal, round and reactive. EXTREMITIES: Show no clubbing, no cyanosis. No noted edema. MUSCULOSKELETAL: Well-healed surgical scar over the lumbar spine. No spinous process tenderness. Seated straight leg raising negative. Supine straight leg raising positive. Josue's test is negative. Modified Gaenslen's positive for axial low back pain. Ankle clonus negative. Babinski is negative. ASSESSMENT: 1. Symptomatic lumbar radiculopathy. 2. Lumbosacral spondylosis with radiculopathy. 3. Central canal stenosis of lumbar spine. 4. Failed lumbar spine surgery. 5. Chronic intractable pain. PLAN: 1. The patient returns today in followup visit having noted 80% improvement in overall pain with the epidural injection provided at last visit. Unfortunately, her symptoms have begun to return. She returns today in followup visit requesting to undergo next in the series of epidural injections. She reports that she is going to be celebrating her 52th anniversary in May and wants to be ready to be able to enjoy the days leading up to and after this constitution party. The patient has been advised risks and benefits of a lumbar epidural injection. These risks include but are not necessarily limited to bleeding, bruising, infection, worsening pain, no relief of pain, also risk of temporary or permanent muscle weakness, temporary or permanent nerve damage, possible paralysis and . The patient states understood and wished to proceed. 2. No medication changes made at today's visit. The patient will continue current medical therapy as previously prescribed. 3. We will see the patient back in followup visit on an as needed basis for possible next in the series of lumbar epidural injections. PROCEDURE NOTE DESCRIPTION PROCEDURE: L3-L4 interlaminar epidural steroid injection under fluoroscopic guidance. After obtaining written consent, the patient was taken back to fluoroscopy suite, placed in prone position with pillow under abdomen to decrease lumbar lordosis. Skin overlying lumbosacral area prepped and draped in aseptic fashion. The L3-L4 vertebral interspace was identified by AP fluoroscopy. Skin and subcutaneous tissue overlying target site injection anesthetized with 3 mL of 1% lidocaine. A 20-gauge 3-1/2 inch Tuohy needle advanced under fluoroscopic guidance towards [address] [address] PAIN MANAGEMENT CONSULTATION Name: LAURA JOLLY Room #: REG CL [facility]#: [id number] Admission: 05/19/20 Attend Phys: Carlos Davis DO Discharge: Date of : 42 Report #: [id number] the epidural space using interlaminar approach. Epidural space identified using loss of resistance to air technique. After negative aspiration for heme or cerebrospinal fluid, 1 mL of Omnipaque injected. Lumbar epidurogram confirmed using both AP and lateral fluoroscopy. After negative aspiration for heme or cerebrospinal fluid, 5 mL of a solution containing 2 mL 40 mg per mL, 80 mg total triamcinolone along with 3 mL lidocaine 1% injected slowly. Needle then retracted [facility], flushed with 1 mL of 1% lidocaine and then removed. Sterile bandage placed over injection site. No new motor deficits present in the lower extremities following procedure. The patient tolerated procedure well, carefully escorted to recovery room in stable condition. No apparent complications. After meeting discharge criteria, the patient discharged home. <ELECTRONICALLY SIGNED> By: Carlos Davis DO 05/20/20 1138 [id number] 1424 Carlos Davis DO /nt
== END | disposition home or self-care (01) ==
LOC: PAIN 05-18 09:08
PROVIDERS: ATTEND Anesthesiology Pain Medicine
DX: M47.27 Other spondylosis with radiculopathy, lumbosacral region (principal); M48.061 Spinal stenosis, lumbar region without neurogenic claudication; G89.29 Other chronic pain; M96.1 Postlaminectomy syndrome, not elsewhere classified; I10 Essential (primary) hypertension; M19.90 Unspecified osteoarthritis, unspecified site; M06.9 Rheumatoid arthritis, unspecified; Z98.890 Other specified postprocedural states; Z79.899 Other long term (current) drug therapy; Z88.8 Allergy status to other drugs, medicaments and biological substances

== ENCOUNTER → 2020-07-28 | Outpatient (CLI) | payer OTHER ==
[~2020-07-28] VITALS: Ht 154.9 cm; Wt 78.3 kg
--- NOTE | ~2020-07-28 | HPC ---
[facility] [place] [address] PAIN MANAGEMENT CONSULTATION Name: LAURA JOLLY Room #: REG [facility].#: [id number] Admission: 07/28/20 Attend Phys: Carlos Davis DO Discharge: Date of : 42 Report #: [id number] THIS REPORT FOR: cc: Sherita Mckeon MD,Carlos Quintanilla MD, DO ~ CC: Carlos Mckeon MD DATE OF SERVICE: 07/28/2020 REFERRING PHYSICIAN: Sherita Mckeon MD CHIEF COMPLAINT: Low back pain, bilateral lower extremity pain and paresthesias. HISTORY OF PRESENT ILLNESS: As you know, the patient is a 79-year-old female who has undergone extensive fusion of the lumbar spine from L4 through S1, who unfortunately began to have increased lumbar radicular symptoms. She has trialled conservative treatment, but did not see much in the way of improvement. She was referred to our clinic to trial epidural injections to determine if her symptoms can be improved. The patient returns today in followup visit having undergone previous epidural injections, the most recent giving a reported 80% improvement in overall pain lasting for nearly 6 weeks. She returns today in followup visit reporting pain score at 9/10. She has denied new injury, trauma or any changes in medical history since our visit of April. ALLERGIES: ADHESIVE TAPE, PLAQUENIL, REMICADE. CURRENT MEDICATIONS: See the extensive list in chart. SOCIAL HISTORY: The patient denies tobacco, alcohol, IV or illicit drug use. She is unaccompanied at today's visit. IMAGING: No new imaging available. PQRS: The patient has known arthritic changes of the lumbar spine, bilateral shoulders, bilateral elbows and bilateral hands. She reports positive rheumatoid arthritis findings and is being treated for that disease process. She is placing current pain score 9/10. She is a fall risk, but has not had a fall in last 3 months. She is not on blood thinners, but is treated for hypertension. She is on chronic opioids with a low opioid assessment for addiction. Pain impact is 35/70, moderate interference of daily activities secondary to pain. [facility] [address] [place] [address] PAIN MANAGEMENT CONSULTATION Name: LAURA JOLLY Room #: REG [facility]#: [id number] Admission: 07/28/20 Attend Phys: Carlos Davis DO Discharge: Date of : 42 Report #: [id number] PHYSICAL EXAMINATION: VITAL SIGNS: Blood pressure 136/59, pulse is 72, respiratory rate 20 and unlabored. The patient is 97% on room air. Height 5 feet 1 inch tall, weight 172.6 pounds, BMI calculated 32.6. GENERAL: Well-developed, well-nourished, well-hydrated 79-year-old female appearing stated age, pain is rated today 9/10. HEENT: Normocephalic, atraumatic. Pupils are reactive. The patient is wearing a mask in compliance with COVID-19 restrictions. EXTREMITIES: Show no clubbing, no cyanosis, no noted edema. MUSCULOSKELETAL: Seated straight leg raising negative. Supine straight leg raising is positive. Josue's test is negative. Modified Gaenslen's positive for axial low back pain. There are noted surgical scars over the lumbar spine. They are well healed. Ankle clonus negative. Babinski is negative. Muscle bulk and tone equal and symmetrical in comparing lower extremities. ASSESSMENT: 1. Symptomatic lumbar radiculopathy. 2. Lumbosacral spondylosis without radiculopathy. 3. Central canal stenosis of lumbar spine. 4. Failed lumbar spine surgery with instrumentation. 5. Chronic intractable pain. PLAN: 1. The patient returns today in followup visit indicating 80% improvement in overall pain lasting for months after the epidural injection provided at our last visit. Unfortunately, her symptoms have begun to return. She denies injury or trauma. She returns today requesting next in the series of epidural injections in hopes of building on the success of previous intervention and maintaining analgesic benefit. The patient has been advised risks and benefits of the procedure, states understood and wished to proceed. 2. No medication changes made at today's visit. The patient will continue current medical therapy as prior prescribed. 3. We will see the patient back in followup visit on an as needed basis for possible next in the series of lumbar epidural injections. We are hopeful the patient will see good and prolonged benefit with today's injection. PROCEDURE NOTE DESCRIPTION OF PROCEDURE: L3-L4 interlaminar epidural steroid injection under fluoroscopic guidance. After obtaining written consent, the patient was taken back to fluoroscopy suite, placed in prone position with pillow under abdomen to decrease lumbar lordosis. Skin overlying lumbosacral area then prepped and draped in aseptic fashion. L3-L4 vertebral interspace was identified by AP fluoroscopy. Skin and subcutaneous tissue overlying target site injection anesthetized with 3 mL of 1% [facility] [address] [place] [address] PAIN MANAGEMENT CONSULTATION Name: LAURA JOLLY [facility] [id number] Admission: 07/28/20 Attend Phys: Carlos Davis DO Discharge: Date of : 42 Report #: [id number] lidocaine. A 20-gauge 3-1/2 inch Tuohy needle advanced under fluoroscopic guidance towards the epidural space using a parasagittal approach. Epidural space identified using loss of resistance to air technique. After negative aspiration for heme or cerebrospinal fluid, 1 mL of Omnipaque injected. Lumbar epidurogram was confirmed using both AP and lateral fluoroscopy. After negative aspiration for heme or cerebrospinal fluid, 5 mL of a solution containing 2 mL 40 mg per mL, 80 mg total triamcinolone along with 3 mL of lidocaine 1% injected slowly. Needle retracted fci, flushed with 1 mL of 1% lidocaine and then removed. Sterile bandage placed over injection site. No new motor deficits present in the lower extremities following procedure. The patient tolerated procedure well, carefully escorted to recovery room in stable condition. No apparent complications. After meeting discharge criteria, the patient discharged home. By: [id number] Carlos Davis DO /nt
[2020-07-28 10:30] VITALS: BP 136/59
--- NOTE | 2020-07-28 10:41 | NUR ---
Pain Clinic Assessment: 1. History of Osteoarthritis: BACK Left Upper Extremity Right Upper Extremity Right Lower Extremity Left Lower Extremity History of Rheumatoid Arthritis: YES 2. Height: 5 ft. 1 in. 154.9 cm. Weight: 172.6 lb. oz. 78.291 kg. Patient's BMI: 32.6 3. Vital Signs: BP: 136/59 Pulse: 72 Resp: 20 Temp: 02 Sat: 97 ECG Mon: 4. Pain Intensity: 9 5. Fall Risk: Dizziness: Y Needs help standing or walking: Y Fallen in the last 3 months: N Fall risk comments: 6. Patient on Blood Thinner: None 7. History of Hypertension: Y 8. Opioid Therapy greater than 6 weeks: Y Opiate Contract Signed: 9. Risk Assessment Tool Provided: 0 LOW 10. Functional Assessment Tool: 11. Recreational Drug Use: Never Drug Type: Tobacco Use: Never Smoker Tobacco Type: Amount or Packs/day: How Many Years: Alcohol Use: Past use Frequency: Quant:
== END | disposition home or self-care (01) ==
LOC: PAIN 06:53
PROVIDERS: ATTEND Anesthesiology Pain Medicine
DX: M47.27 Other spondylosis with radiculopathy, lumbosacral region (principal); M48.061 Spinal stenosis, lumbar region without neurogenic claudication; M96.1 Postlaminectomy syndrome, not elsewhere classified; G89.29 Other chronic pain; I10 Essential (primary) hypertension; M19.90 Unspecified osteoarthritis, unspecified site; Z98.890 Other specified postprocedural states; Z79.899 Other long term (current) drug therapy; Z88.8 Allergy status to other drugs, medicaments and biological substances

== ENCOUNTER → 2020-08-11 | Outpatient (CLI) | payer OTHER ==
[~2020-08-11] VITALS: Ht 154.9 cm; Wt 78.2 kg
[2020-08-11 09:54] VITALS: BP 149/68
--- NOTE | 2020-08-11 10:12 | NUR ---
Pain Clinic Assessment: 1. History of Osteoarthritis: BACK Left Upper Extremity Right Upper Extremity Right Lower Extremity Left Lower Extremity History of Rheumatoid Arthritis: YES 2. Height: 5 ft. 1 in. 154.9 cm. Weight: 172.4 lb. oz. 78.200 kg. Patient's BMI: 32.6 3. Vital Signs: BP: 149/68 Pulse: 72 Resp: 16 Temp: 02 Sat: 96 ECG Mon: 4. Pain Intensity: 9-10 STANDING 5. Fall Risk: Dizziness: Y Needs help standing or walking: Y Fallen in the last 3 months: N Fall risk comments: 6. Patient on Blood Thinner: None 7. History of Hypertension: Y 8. Opioid Therapy greater than 6 weeks: Y Opiate Contract Signed: 9. Risk Assessment Tool Provided: 0 LOW 10. Functional Assessment Tool: 11. Recreational Drug Use: Never Drug Type: Tobacco Use: Never Smoker Tobacco Type: Amount or Packs/day: How Many Years: Alcohol Use: Past use Frequency: Quant:
--- NOTE | 2020-08-12 11:51 | HPC ---
[facility] [place] [address] PAIN MANAGEMENT CONSULTATION Name: LAURA JOLLY Room #: REG [facility].#: [id number] Admission: 08/11/20 Attend Phys: Carlos Davis DO Discharge: Date of : 42 Report #: [id number] THIS REPORT FOR: cc: Sherita Mckeon MD, Jennifer L MD Johnson, James E. DO ~ DATE OF SERVICE: 08/11/2020 REFERRING PHYSICIAN: MD Sherita Dale MD CHIEF COMPLAINT: Low back pain, bilateral lower extremity pain with paresthesias. HISTORY OF PRESENT ILLNESS: As you know, the patient is a pleasant 79-year-old female who has undergone fusion of L4 through S1, who unfortunately began to experience increasing radicular symptoms related to the area just above her fusion. She has undergone epidural injections with efficacy starting in 2014. She underwent decompression with Dr. Jones after those injections became less effective. She began to experience recurrence of lumbar radicular symptoms soon after surgery and sent to our clinic to trial epidural injections. Most recent epidural injection according to the patient gave improvement in symptoms for which she indicates 50%, but only lasting for a couple of weeks. Unfortunately, her symptoms have begun to return. As you are aware, the patient has significant central canal stenosis at the levels above her fusion, in 2017 classified as moderately severe. She has not had imaging since that time. She returns today in followup visit requesting to undergo lumbar epidural injection and to discuss other treatment options. The patient indicates that she has been experiencing increasing weakness in the left lower extremity. She has noted no atrophy, but inability to navigate stairs without significant difficulty. She is not sustained a fall to date, but has had multiple near falls. ALLERGIES: ADHESIVE TAPE, PLAQUENIL, REMICADE. CURRENT MEDICATIONS: See chart. SOCIAL HISTORY: The patient denies tobacco, alcohol, IV or illicit drug use. She is accompanied by her , present in room today. IMAGING: No new imaging available. PQRS: The patient has progressively worsening arthritic changes of the lumbar spine, bilateral shoulders, bilateral elbows and bilateral hands. She has a reported rheumatoid arthritis positivity and is treated for the disease. She is placing her current pain score at 10/10. She is a fall risk, but has not had a [address] [place] [address] PAIN MANAGEMENT CONSULTATION Name: LAURA JOLLY Room #: REG [facility].#: [id number] Admission: 08/11/20 Attend Phys: Carlos Davis DO Discharge: Date of : 42 Report #: [id number] fall in the last 3 months, though she has had multiple near falls. She is not on blood thinners, but is treated for hypertension. She is on chronic opioids and has a low opioid addiction potential based on our assessment tool. Pain impact 35/70, moderate interference of daily activities secondary to pain. PHYSICAL EXAMINATION: VITAL SIGNS: Blood pressure 149/68, pulse is 72, respiratory rate 16 and unlabored. The patient is 96% on room air. Height 5 feet 1 inch tall, weight 172.4 pounds, BMI calculated 32.6. GENERAL: Well-developed, well-nourished, well-hydrated exogenously obese 79-year-old female appearing stated age. She is placing current pain score at 9-10/10. HEENT: Normocephalic, atraumatic. Pupils equal, round and reactive. Speech is fluent for patient. EXTREMITIES: Show no clubbing, no cyanosis. No appreciable edema. MUSCULOSKELETAL: Seated straight leg raising is now positive on the left. Supine straight leg raising positive on the left. Josue's test negative. Modified Gaenslen's positive for axial low back pain. Well-healed surgical scars of the lumbar spine. Gait is extremely antalgic favoring left lower extremity over right and she does have to utilize a roller walker for balance and ambulation capabilities. ASSESSMENT: 1. Symptomatic lumbar radiculopathy. 2. Lumbosacral spondylosis with radiculopathy. 3. Central canal stenosis of the lumbar spine. 4. Failed lumbar spine surgery. 5. Chronic intractable pain. PLAN: 1. The patient returns today in followup visit indicating improvement in symptoms with the epidural injection, but unfortunately the previous epidural injection only gave 3 weeks' worth of analgesic benefit with recurrence of symptoms. The patient and I did discussed at the last visit and again at this visit are concerned of progressively worsening central canal stenosis. The patient has had a fusion from L4 through S1 with instrumentation, but this left her with moderately severe central canal stenosis at the level of L3-L4. Given the distribution of symptoms and the progression of her weakness in the lower extremities, it would be assumed that her spinal stenosis has progressed. The imaging from 2017 showed to [id number] central canal stenosis and bilateral neural foraminal stenosis at the L3-L4 level and this has progressed based on our evaluation. We discussed with the patient treatment options for progressively worsening central canal stenosis. I am most concerned of the weakness she is experiencing in the left lower extremity. The patient states she has to nearly lift her leg up just to be able to step upstairs. She is unable to go any long distance from an ambulation standpoint without weakness [address] [address] PAIN MANAGEMENT CONSULTATION Name: LAURA JOLLY [id number] Admission: 08/11/20 Attend Phys: Carlos Davis DO Discharge: Date of : 42 Report #: [id number] and near falls and she feels as if her left leg is giving out. I am not able to appreciate any significant atrophy in the left lower extremity, though there is significant deconditioning of the bilateral lower extremities. We discussed the following treatment options with the patient today. We discussed physical therapy, stretching exercises and strengthening techniques to assist for lower extremity weakness. This could improve her symptoms to some degree. We discussed medication management as a way to treat ongoing pain, but this will have no effect on the weakness that she is experiencing in the left lower extremity and she will still remain a fall risk. We also discussed with the patient repeating an epidural injection, which might provide some increased analgesic benefit, but if she only sees transient improvement with this injection, further injections would not be recommended. We discussed a spinal cord stimulator as a way to treat the patient's symptoms, but have advised the patient the weakness that she is experiencing and the decreased functional capabilities of utilizing her legs will not be improved with that device. We also discussed surgical options with the patient, which I believe ultimately will be necessary given her age of 79 with the average life span of a female, currently at 83-85 years of age, I believe the progression of her stenosis will make it impossible to live an active life and may need decompression. After the discussion of the treatment options, the patient chose to undergo a lumbar epidural injection under fluoroscopic guidance. The patient has been advised risks and benefits of a lumbar epidural injection. These risks include but are not necessarily limited to bleeding, bruising, infection, worsening pain, no relief of pain, also risk of temporary or permanent muscle weakness, temporary or permanent nerve damage, possible paralysis and . The patient states understood and wished to proceed. 2. No medication changes made at today's visit. The patient is going to consider options for treatment, whether she wishes to look towards more aggressive treatment options or wishes to discuss medication management for analgesic benefit, understanding that the weakness will not be altered. She will consider those options and contact our clinic with her decisions. PROCEDURE NOTE DESCRIPTION OF PROCEDURE: L3-L4 interlaminar epidural steroid injection under fluoroscopic guidance. After obtaining written consent, the patient was taken back to fluoroscopy suite, placed in prone position with pillow under abdomen to decrease lumbar lordosis. Skin overlying the lumbosacral area then prepped and draped in aseptic fashion. The L3-L4 interspace identified by AP fluoroscopy. Skin and subcutaneous tissue overlying the target site of injection anesthetized with 3 mL of 1% lidocaine. A 20-gauge 3-1/2 inch Tuohy needle advanced [place] [address] PAIN MANAGEMENT CONSULTATION Name: LAURA JOLLY Room #: REG [facility]#: [id number] Admission: 08/11/20 Attend Phys: Carlos Davis DO Discharge: Date of : 42 Report #: [id number] the epidural space using a midline approach. Epidural space identified using loss of resistance to air technique. After negative aspiration for heme or cerebrospinal fluid, 0.5 mL of omnipaque was injected. Lumbar epidurogram confirmed using both AP and lateral fluoroscopy. After negative aspiration for heme or cerebrospinal fluid, 5 mL of a solution containing 2 mL 40 mg per mL, 80 mg total triamcinolone along with 3 mL of lidocaine 1% injected slowly. Needle retracted fci, flushed with 1 mL of 1% lidocaine and then removed. Sterile bandage placed over injection site. No new motor deficits present in the lower extremities following the procedure. The patient tolerated the procedure well, carefully escorted to recovery room in stable condition. No apparent complications. After meeting discharge criteria, the patient discharged home. <ELECTRONICALLY SIGNED> By: Carlos Davis DO 08/12/20 1151 [id number] Carlos Davis DO /nt
== END | disposition home or self-care (01) ==
LOC: PAIN 06:41
PROVIDERS: ATTEND Anesthesiology Pain Medicine
DX: M47.27 Other spondylosis with radiculopathy, lumbosacral region (principal); M48.061 Spinal stenosis, lumbar region without neurogenic claudication; M96.1 Postlaminectomy syndrome, not elsewhere classified; G89.29 Other chronic pain; Z98.890 Other specified postprocedural states; Z79.899 Other long term (current) drug therapy; Z88.8 Allergy status to other drugs, medicaments and biological substances